=== PATIENT | male | born 1995 | race Two or more races ===

== ENCOUNTER → 2020-11-06 07:50 | Outpatient (CLI) | payer OTHER | END | disposition home or self-care (01) | LOC: PPH VACUNA 07:50 | DX: Z23 Encounter for immunization (principal) ==

== ENCOUNTER → 2020-11-27 13:29 | Outpatient (CLI) | payer OTHER | END | disposition home or self-care (01) | LOC: PPH VACUNA 13:29 | DX: Z23 Encounter for immunization (principal) ==